=== PATIENT | male | born 1980 | race Caucasian/White ===

== ENCOUNTER 2022-02-20 09:35 | Emergency (ER) | payer MEDICAID ==
[2022-02-20] MEDS ORDERED: TRILEPTAL600 M1 PO (09:52)
[2022-02-20] MEDS ORDERED: AMLODIPINE BESYL5 MG (09:52)
[2022-02-20] MEDS ORDERED: LYRICA200 MG PO (09:52)
[2022-02-20 09:59] LABS: BASO # 0.04 K/mm3 (0.02-0.10); EOS # 0.17 K/mm3 (0.04-0.40); EOS % 2.7 % (0.0-4.0); HEMATOCRIT 43.6 % (42.0-52.0); HEMOGLOBIN 14.4 g/dL (13.5-18.0); LYMPH# 1.94 K/mm3 (1.50-4.00); MEAN CELL VOLUME 90 fl (78-100); MEAN CORPUSCULAR HEMOGLOBIN 30 pg (27-31); MEAN CORPUSCULAR HGB CONC 33 g/dL (33-37); MEAN PLATELET VOLUME 9.4 fl (7.4-10.4); NEU # 3.55 K/mm3 (1.40-6.50); PLATELET COUNT 214 K/mm3 (130-400); RED BLOOD COUNT 4.87 M/mm3 (4.20-5.60); RED CELL DISTRIBUTION WIDTH 12.9 % (11.5-14.5); WHITE BLOOD COUNT 6.3 K/mm3 (4.8-10.8)
[2022-02-20] MEDS ORDERED: ALPRAZOLAM1 MG PO (10:02)
[2022-02-20] MEDS ORDERED: ARIPIPRAZOLE10 M1 PO (10:02)
[2022-02-20] MEDS ORDERED: DESVENLAFAXINE100 M3 PO (10:02)
[2022-02-20] MEDS ORDERED: QUETIAPINE FUM100 M1 PO (10:02)
[2022-02-20] MEDS ORDERED: DEXTROAMPH SACC10 M1 PO (10:02)
[2022-02-20 10:07] LABS: ALBUMIN 3.9 g/dL (3.5-5.0)
[2022-02-20 10:08] LABS: POTASSIUM 3.9 mmol/L (3.5-5.1); SODIUM 139 mmol/L (136-145)
[2022-02-20 10:09] LABS: CALCIUM 9.6 mg/dL (8.3-10.5)
[2022-02-20 10:10] LABS: GLUCOSE 142 mg/dL (75-110); TOTAL PROTEIN 7.4 g/dL (6.4-8.3)
[2022-02-20 10:11] LABS: CARBON DIOXIDE 24 mmol/L (22-29)
[2022-02-20 10:12] LABS: TOTAL BILIRUBIN 0.4 mg/dL (0.2-1.2)
[2022-02-20 10:17] LABS: ALT/SGPT 23 U/L (0-55)
[2022-02-20 10:23] LABS: TROPONIN-I < 0.030 ng/mL (<0.030)
[2022-02-20 10:27] LABS: AST-SGOT 16 U/L (5-34)
[2022-02-20] MEDS ORDERED: AMOXICILLIN AND1 TA2 PO (11:48)
[2022-02-20] MEDS ORDERED: PREDNISONE20 M1 PO (11:48)
[2022-02-20 12:07] VITALS: BP 167/92
== END 2022-02-20 11:59 | disposition home or self-care (01) ==
LOC: ED 09:35
PROVIDERS: Nurse Practitioner
DX: H65.91 Unspecified nonsuppurative otitis media, right ear (principal); G89.29 Other chronic pain; Z88.6 Allergy status to analgesic agent; Z79.891 Long term (current) use of opiate analgesic
CPT/HCPCS: J2310; J7512